=== PATIENT | male | born 1980 | race Caucasian/White ===

== ENCOUNTER 2016-08-08 19:27 | Inpatient (IN) ==
--- NOTE | 2016-08-08 19:33 | Emergency Department Note ---
Disposition Clinical Impression: Delirium tremens Disposition: Admitted As Inpatient Condition: Undetermined Time of Disposition: 21:10 Alcohol HPI - General Chief Complaint: ED Alcohol Abuse Stated Complaint: etoh withdrawal Time Seen by Provider: 08/08/16 19:28 Source: patient Mode of arrival: EMS Limitations: no limitations Nursing Notes Reviewed: Yes Vital Signs Reviewed: Yes - History of Present Illness HPI Narrative: 36-year-old male chronic alcohol abuser arrives to [facility] emergency department complaining concerned about alcohol withdrawal. The patient states that he typically drinks 2 L bottles of vodka per day. He states that he has only had 4 beers today. The patient is trembling in the room. Patient does admit to history of seizure. Pt Subjective Complaint: alcohol withdrawal, alcohol dependence Last Drink: hours (ago) (4) Alcohol Type: 2 - liters of vodka daily (today) Chronic Alcohol Use: Yes Previous Visits for Alcohol Intoxication?: No Recent Trauma: No Associated symptoms: Reports: nausea, vomiting, seizure Treatments prior to arrival: none - Related Data Home Medications Medication Instructions Recorded Confirmed No Known Home Drugs 08/08/16 08/08/16 Allergies Allergy/AdvReac Type Severity Reaction Status Date / Time haloperidol Allergy See Verified 03/14/15 11:38 Comments NSAIDS (Non-Steroidal Allergy Rash Verified 03/14/15 11:38 Anti-Inflamma Penicillins Allergy Rash Verified 03/14/15 11:38 quetiapine [From Seroquel] Allergy See Verified 03/14/15 11:38 Comments All systems ED: reviewed and negative except as stated. Constitutional: Denies: fever, chills, weakness, weight change Cardiovascular: Denies: chest pain, palpitations, dyspnea on exertion, edema, syncope Respiratory: Reports: wheezes. Denies: cough, dyspnea, hemoptysis, stridor Gastrointestinal: Reports: nausea, vomiting. Denies: abdominal pain, diarrhea, constipation, hematemesis, melena, hematochezia Genitourinary: Denies: urgency, dysuria, frequency, hematuria Musculoskeletal: Denies: back pain, neck pain, arthralgia, myalgia Integumentary: Denies: rash, abrasion, lesions Neurological: Denies: headache, weakness, numbness, paresthesias, confusion, abnormal gait, vertigo Psychiatric: Reports: depression. Denies: anxiety, suicidal thoughts, homicidal thoughts, auditory hallucinations, visual hallucinations Past Medical History - Past Medical History Attestation: Yes The following information was validated with the patient. Source: patient Medical history: Reports: no medical history Surgical history: Reports: no surgical history Psychiatric history: Reports: ADHD, bipolar - Social History Smoking Status: Never smoker Smokeless Tobacco Status: Yes Alcohol use: Reports: none Drug use: Reports: none Physical Exam - General Limitations: no limitations General appearance: alert, anxious - Head Head exam: atraumatic, normocephalic, normal inspection - Chest Chest inspection: Present: normal inspection, symmetric chest wall rise - Respiratory Respiratory exam: Present: wheezes (Mild wheezing bilateral upper lobes) - Cardiovascular Cardiovascular exam: Present: regular rate, normal rhythm, normal heart sounds - Abdominal Exam Abdominal exam: Present: soft, Non-Tender. Absent: tenderness, distention, guarding, rebound, rigidity - Extremities Exam Extremities exam: Present: normal inspection, full ROM, other (Numerous scars particularly in right upper extremity). Absent: tenderness, pedal edema - Back Exam Back exam: Present: normal inspection, full ROM. Absent: tenderness - Neurological Exam Neurological exam: Present: alert, oriented X3 - Expanded Neurological Exam Patient oriented to: Present: person, place, time Speech: Present: fluid speech Coma Scale Eye Opening: Spontaneous Coma Scale Motor Response: Obeys Commands Coma Scale Verbal Response: Oriented Coma Scale Total: 15 - Psychiatric Psychiatric exam: Present: anxious - Expanded Psychiatric Exam Expanded psych exam: Present: restlessness - Skin Skin exam: Present: warm, dry, intact, normal color Course - Reevaluation(s) Reevaluation #1: Alcohol level is less than 10. We will administer IV Ativan and admit the patient to the hospital for concern for DVT versus alcohol withdrawal. Patient agrees to plan. Time: 20:41 Vital Signs Temperature 98.1 F 08/08/16 19:29 Pulse Rate 62 08/08/16 19:29 Respiratory Rate 18 08/08/16 19:29 Blood Pressure 133/112 08/08/16 19:29 O2 Sat by Pulse Oximetry 98 08/08/16 19:29 Temperature 98.0 F 08/09/16 03:16 Pulse Rate 67 08/09/16 03:16 Respiratory Rate 14 08/09/16 03:16 Blood Pressure 150/94 08/09/16 03:16 O2 Sat by Pulse Oximetry 97 08/09/16 03:16 Oxygen Delivery Oxygen Delivery Room Air Alcohol - MDM Narrative Medical decision making narrative: Concerning for delirium tremens. Administered 1 mg Ativan. We will admit to the hospitalist concerning for delirium tremens. Accepted by Dr. Louise. - Lab Data Lab results reviewed: Yes I reviewed the patient's lab results. Result diagrams: 08/08/16 19:56 08/08/16 19:56 Lab Results 08/08/16 08/08/16 Range/Units 19:56 19:56 WBC 2.8 L (4.3-11.1) K/mcL RBC 5.09 (4.19-5.50) M/mcL Hgb 9.7 L (12.9-16.9) g/dL Hct 32.8 L (37.5-50.1) % MCV 64.4 L (83.0-100.0) fL MCH 19.1 L (28.0-33.3) pg MCHC 29.6 L (31.6-35.5) g/dL RDW 19.9 H (11.5-14.5) % Plt Count 153 (140-400) K/mcL MPV (9.4-12.4) fL Immature Gran % 0.7 (0-4) % Seg Neutrophils % 73.9 % Lymphocytes % 17.8 % Monocytes % 7.2 % Eosinophils % 0.4 % Basophils % 0.0 % Neutrophils # 2.1 (1.6-8.9) K/mcL Lymphocytes # 0.5 L (0.6-4.6) K/mcL Monocytes # 0.2 (0.0-1.3) K/mcL Eosinophils # 0.0 (0.0-0.6) K/mcL Basophils # 0.0 (0.0-0.2) K/mcL Immature Plt Fraction 6.1 (1.1-6.1) % Polychromasia 1+ A (Not Present) Microcytosis Present A (Not Present) Sodium 133 L (136-145) mEq/L Potassium 3.4 L (3.5-4.5) mEq/L Chloride 91 L (98-109) mEq/L Carbon Dioxide 24 (19-29) mEq/L BUN 16 (8-26) mg/dL Creatinine 0.69 L (0.72-1.25) mg/dL Est GFR ( Amer) > 60 (> 60) Est GFR (Non-Af Amer) > 60 (> 60) BUN/Creatinine Ratio 23 (6-26) Glucose 101 H (70-99) mg/dL Calculated Osmolality 277 L (280-300) Calcium 9.9 (8.6-10.8) mg/dL Ethyl Alcohol < 10 (0-10) mg/dL - Radiology Data Radiology results reviewed: Yes I reviewed the patient's radiology results. Attestation Statement - Attestation Attestation: I examined this patient and my medical decision-making was reviewed with the ENGINEERING PROFESSOR/PA/Advanced Practice Nurse/Resident Physician. I agree with the documented findings, disposition and treatment plan as described except to the extent set forth below. Patient emergency department complaining of alcohol withdrawal. Patient states he usually drinks two 1/5 of liquor daily. He has only had 4 beers today. He feels shaky any sinus seizure. History of the same. States he wants to stop drinking. Recently moved here from [place]. On examination he is awake and alert. Oriented. Shaky. Moving all extremities. Lungs with end expiratory wheezing. Abdomen soft. Plan. Ativan. Labs and alcohol. Plan admission for alcohol withdrawal sick concern for DTs. 30 minutes of critical care exclusive of separately billable procedures.
[2016-08-08] MEDS ORDERED: Thiamine (B-1) 100 MG, Folic Acid 1 MG, MVI, adult with vitamin K 10 ML in 0.9 % Sodi... IVPB ONE (19:45)
[2016-08-08] MEDS ORDERED: Ondansetron 4 MG/2 ML VIAL IVP ONE (20:14)
[2016-08-08] MEDS ORDERED: Ondansetron 4 MG/2 ML VIAL ONE (20:16)
[2016-08-08 20:22] LABS: Eosinophils % 0.4 %; Hematocrit 32.8 % (37.5-50.1); Hemoglobin 9.7 g/dL (12.9-16.9); Immature Granulocytes % 0.7 % (0-4); Immature Platelets 6.1 % (1.1-6.1); Lymphocytes # 0.5 K/mcL (0.6-4.6); Lymphocytes % 17.8 %; Mean Corpuscular HGB Conc 29.6 g/dL (31.6-35.5); Mean Corpuscular Hemoglobin 19.1 pg (28.0-33.3); Mean Corpuscular Volume 64.4 fL (83.0-100.0); Monocytes # 0.2 K/mcL (0.0-1.3); Monocytes % 7.2 %; Platelet Count 153 K/mcL (140-400); Red Blood Count 5.09 M/mcL (4.19-5.50); Red Cell Distribution Width 19.9 % (11.5-14.5); Segmented Neutrophils % 73.9 %
[2016-08-08 20:23] LABS: Neutrophils # 2.1 K/mcL (1.6-8.9)
[2016-08-08 20:31] LABS: BUN/Creatinine Ratio 23 (6-26); Blood Urea Nitrogen 16 mg/dL (8-26); Calcium 9.9 mg/dL (8.6-10.8); Carbon Dioxide 24 mEq/L (19-29); Chloride 91 mEq/L (98-109); Glucose 101 mg/dL (70-99); Osmolality,Calculated 277 (280-300); Potassium 3.4 mEq/L (3.5-4.5); Sodium 133 mEq/L (136-145); eGFR For African Americans > 60 (> 60); eGFR For Non-African Americans > 60 (> 60)
[2016-08-08 20:32] LABS: Ethanol < 10 mg/dL (0-10)
[2016-08-08] MEDS ORDERED: *HR* LORazepam 2 MG/ML VIAL IVP ONE (20:35)
[2016-08-08 20:40] LABS: Microcytosis Present (Not Present); Polychromasia 1+ (Not Present)
[2016-08-08] MEDS ORDERED: Naloxone 0.4 MG/ML INJ IVP PRN (22:32)
[2016-08-08] MEDS ORDERED: *HR* LORazepam 2 MG/ML VIAL ONE (22:38)
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
[2016-08-08] MEDS ORDERED: Potassium Chloride 20 MEQ, Lidocaine 1% 2 ML in D5% in Water 250 ML IVPB ONE (23:03)
--- NOTE | 2016-08-08 23:04 | Event Note ---
Date of Encounter: 08/08/16 Time of Encounter: 23:01 Patient seen and examined with nurse practitioner. Agree with assessment and plan. Patient is a heavy alcoholic drinks to [employer] every day starts withdrawing within 3 hours after last drink. He mentioned that he his last drink was in the morning about 9 AM. He is vomiting shaky, restless. He had a witnessed seizure. He had seizures before drinking alcohol withdrawal. Will start slow protocol. Head CT scan will be performed given recurrent falls. Patient is not suicidal.
[2016-08-08] MEDS ORDERED: D5% in 0.9% NACL 1,000 ML IVC SCH (23:15)
[2016-08-08] MEDS: Nicotine 21 MG PATCH.TD24 TD SCH (23:51)
[2016-08-09] MEDS: *HR* LORazepam 2 MG/ML VIAL IVP PRN ×8 (00:10→21:47)
[2016-08-09] MEDS ORDERED: Ondansetron 4 MG/2 ML VIAL ONE (01:08)
[2016-08-09] MEDS ORDERED: 0.9 % Sodium Chloride 1,000 ML IVC ONE (04:34)
[2016-08-09] MEDS ORDERED: *HR* Promethazine 25 MG/ML VIAL IVP ONE (04:35)
[2016-08-09 05:18] LABS: Amphetamine Screen,Urine Negative ng/mL (Cutoff=1000); Barbiturate Screen,Urine Negative ng/mL (Cutoff=200); Benzodiazepines Screen,Urine Negative ng/mL (Cutoff=200); Cannabinoid Screen,Urine Negative ng/mL (Cutoff = 50); Cocaine Screen,Urine Negative ng/mL (Cutoff= 300); Opiate Screen,Urine Negative ng/mL (Cutoff=300); Phencyclidine Screen,Urine Negative ng/mL (Cutoff=25)
[2016-08-09 05:36] LABS: Bilirubin,Urine Moderate (Negative); Blood,Urine Negative (Negative); Clarity,Urine Clear (Clear); Color,Urine Orange (Yellow); Glucose,Urine (UA) Normal (Normal); Ketones,Urine 40 mg/dL (Negative); Leukocyte Esterase,Urine Small (Negative); Nitrite,Urine Positive (Negative); PH,Urine 6.5 pH Units (5.0-8.0); Protein,Urine 30 mg/dL (Neg-Trace); Specific Gravity,Urine > 1.030 (1.010-1.025); Urobilinogen,Urine >=8.0 mg/dL (Normal)
[2016-08-09 05:38] LABS: Bacteria,Urine None Seen per hpf (None-Few); Hyaline Casts,Urine None Seen per lpf (None-Few); Squamous Epithelial Cell,Urine Moderate per lpf (None-Few); WBC,Urine 0-3 per hpf (0-3)
[2016-08-09 06:44] LABS: Immature Granulocytes % 0.3 % (0-4)
[2016-08-09 06:47] LABS: Eosinophils % 0.6 %; Hematocrit 31.1 % (37.5-50.1); Immature Platelets 8.7 % (1.1-6.1); Lymphocytes # 1.2 K/mcL (0.6-4.6); Lymphocytes % 36.5 %; Mean Corpuscular HGB Conc 28.9 g/dL (31.6-35.5); Mean Corpuscular Hemoglobin 19.5 pg (28.0-33.3); Mean Corpuscular Volume 67.3 fL (83.0-100.0); Monocytes # 0.2 K/mcL (0.0-1.3); Neutrophils # 1.8 K/mcL (1.6-8.9); Red Blood Count 4.62 M/mcL (4.19-5.50); Red Cell Distribution Width 20.3 % (11.5-14.5); Segmented Neutrophils % 57.6 %
[2016-08-09 07:03] LABS: BUN/Creatinine Ratio 23 (6-26); Blood Urea Nitrogen 16 mg/dL (8-26); Carbon Dioxide 27 mEq/L (19-29); Chloride 98 mEq/L (98-109); Glucose 90 mg/dL (70-99); Magnesium 1.9 mg/dL (1.6-2.6); Osmolality,Calculated 281 (280-300); Potassium 3.4 mEq/L (3.5-4.5); Sodium 135 mEq/L (136-145); eGFR For African Americans > 60 (> 60); eGFR For Non-African Americans > 60 (> 60)
[2016-08-09] MEDS: Nicotine 21 MG PATCH.TD24 TD SCH (07:53)
[2016-08-09 08:01] LABS: Platelet Count 97 K/mcL (140-400)
[2016-08-09 08:03] LABS: Platelet Estimate Decreased (Normal)
[2016-08-09 08:04] LABS: Hypochromasia Present (Not Present); Macrocytosis Present (Not Present); Microcytosis Present (Not Present); Polychromasia 1+ (Not Present)
[2016-08-09] MEDS ORDERED: D5% in 0.9% NACL 1,000 ML IVC SCH (11:21)
[2016-08-09] MEDS: Ondansetron 4 MG/2 ML VIAL IVP PRN ×2 (12:18→20:07)
--- NOTE | 2016-08-09 14:20 | Internal Med Progress Note ---
Date of Encounter: 08/09/16 Time of Encounter: 09:45 - Assessment and plan (1) Alcohol withdrawal Current Visit: Yes Status: Acute Assessment and plan: Patient normally drinks a fifth of vodka as well as several beers daily. the day of admission, he had his last drink approximately 9 AM and a few hours later he had a seizure. CT head was negative. Presently patient is tremulous. CIWA. Librium 3 times a day. fall/aspiration precautions Qualifiers: Complication of substance-induced condition: with unspecified complication Qualified Code(s): F10.239 - Alcohol dependence with withdrawal, unspecified (2) Tobacco abuse Current Visit: Yes Status: Chronic - Subjective Interval history: patient feels cold. no nausea. no vomiting. - Constitutional Vitals: Temp Pulse Resp BP Pulse Ox 98.3 F 88 16 135/78 91 08/09/16 11:31 08/09/16 11:31 08/09/16 11:31 08/09/16 11:31 08/09/16 11:31 General appearance: Present: cooperative, mild distress (tremors, restless), A& O X 3, pleasant, underweight, answers questions appropriately - Neck Neck exam general surgery: Present: supple, trachea midline. Absent: lymphadenopathy - Respiratory Respiratory exam: Present: CTAB - Cardiovascular Cardiovascular exam: Present: RRR - GI/Abdominal GI/Abdominal exam: Present: normal bowel sounds, soft. Absent: distended, tenderness - Extremities Exam Extremities exam: Absent: pedal edema - Back Exam Back exam: Absent: CVA tenderness (L), CVA tenderness (R) - Neurological Exam Neurological exam: Present: alert, oriented X3, no focal deficits, strengths equal and symetr throughout. Absent: facial droop, speech deficit Internal Medicine: Result - Labs CBC & Chem 7: 08/09/16 06:02 08/09/16 06:02 Labs: Short CBC 08/09/16 Range/Units 06:02 WBC 3.2 L (4.3-11.1) K/mcL Hgb 9.0 L (12.9-16.9) g/dL Hct 31.1 L (37.5-50.1) % Plt Count 97 L (140-400) K/mcL Neutrophils # 1.8 (1.6-8.9) K/mcL BMP 08/09/16 06:02 Sodium 135 L Potassium 3.4 L Chloride 98 Carbon Dioxide 27 BUN 16 Creatinine 0.71 L Glucose 90 Calcium 9.0 Urine 08/09/16 Range/Units 04:20 Urine Color [place] A (Yellow) Urine Clarity Clear (Clear) Urine pH 6.5 (5.0-8.0) pH Units Ur Specific [place] > 1.030 H (1.010-1.025) Urine Protein 30 H (Neg-Trace) mg/dL Urine Glucose (UA) Normal (Normal) mg/dL - Impressions Impressions Head CT 08/08/16 22:27 IMPRESSION: No acute intracranial abnormality. D/ / Wilmer Hernandez MD / Wilmer Hernandez MD Interpreting Provider: Wilmer Hernandez MD Consult Discharge Plan - Plan Referrals: NO,PCP [Primary Care Provider] -
[2016-08-09] MEDS: *HR* Heparin 5,000 UNIT/ML VIAL SQ SCH (17:24)
[2016-08-09] MEDS ORDERED: Thiamine (B-1) 100 MG, Folic Acid 1 MG, MVI, adult with vitamin K 10 ML in 0.9 % Sodi... IVPB SCH (18:00)
[2016-08-10] MEDS: *HR* LORazepam 2 MG/ML VIAL IVP PRN ×4 (00:38→11:12)
[2016-08-10 03:38] LABS: Hemoglobin 8.7 g/dL (12.9-16.9)
[2016-08-10 03:40] LABS: Basophils % 0.3 %; Eosinophils % 0.7 %; Hematocrit 30.7 % (37.5-50.1); Immature Granulocytes % 0.3 % (0-4); Lymphocytes % 49.7 %; Mean Corpuscular HGB Conc 28.3 g/dL (31.6-35.5); Mean Corpuscular Hemoglobin 19.6 pg (28.0-33.3); Monocytes # 0.2 K/mcL (0.0-1.3); Monocytes % 5.8 %; Neutrophils # 1.3 K/mcL (1.6-8.9); Platelet Count 102 K/mcL (140-400); Red Blood Count 4.45 M/mcL (4.19-5.50); Red Cell Distribution Width 20.3 % (11.5-14.5); Segmented Neutrophils % 43.2 %
[2016-08-10 03:55] LABS: BUN/Creatinine Ratio 21 (6-26); Blood Urea Nitrogen 15 mg/dL (8-26); Calcium 8.7 mg/dL (8.6-10.8); Carbon Dioxide 24 mEq/L (19-29); Chloride 105 mEq/L (98-109); Glucose 84 mg/dL (70-99); Magnesium 1.7 mg/dL (1.6-2.6); Osmolality,Calculated 286 (280-300); Potassium 3.4 mEq/L (3.5-4.5); Sodium 138 mEq/L (136-145); eGFR For African Americans > 60 (> 60); eGFR For Non-African Americans > 60 (> 60)
[2016-08-10 03:56] LABS: Lymphocytes # 1.4 K/mcL (0.6-4.6)
[2016-08-10 04:05] LABS: Platelet Estimate Decreased (Normal)
[2016-08-10 04:06] LABS: Anisocytosis 1+ (Not Present); Hypochromasia Present (Not Present); Microcytosis Present (Not Present)
[2016-08-10 04:07] LABS: Target Cells 1+ (Not Present)
[2016-08-10] MEDS: *HR* Heparin 5,000 UNIT/ML VIAL SQ SCH (06:26)
[2016-08-10] MEDS: Nicotine 21 MG PATCH.TD24 TD SCH (07:51)
[2016-08-10] MEDS ORDERED: Pantoprazole 40 MG VIAL IVP SCH (09:00)
[2016-08-10] MEDS: Ondansetron 4 MG/2 ML VIAL IVP PRN (11:11)
[2016-08-10 11:16] VITALS: BP 135/89
--- NOTE | 2016-08-10 11:19 | Internal Med Progress Note ---
Date of Encounter: 08/10/16 Time of Encounter: 09:00 - Assessment and plan (1) Alcohol withdrawal Current Visit: Yes Status: Acute Assessment and plan: Patient normally drinks a fifth of vodka as well as several beers daily. the day of admission, he had his last drink approximately 9 AM and a few hours later he had a seizure. CT head was negative. Presently patient is tremulous. requirinf IV lorazepam for withdrawal symptoms. continue Librium 3 times a day and CIWA. patient at high risk for seizure. fall/aspiration precautions Qualifiers: Complication of substance-induced condition: with unspecified complication Qualified Code(s): F10.239 - Alcohol dependence with withdrawal, unspecified (2) Tobacco abuse Current Visit: Yes Status: Chronic - Subjective Interval history: patient feels nauseous and has vomited yesterday. - Constitutional Vitals: Temp Pulse Resp BP Pulse Ox 98.7 F 83 16 135/89 100 08/10/16 11:16 08/10/16 11:16 08/10/16 11:16 08/10/16 11:16 08/10/16 11:16 General appearance: Present: cooperative, mild distress (tremors, restless), A& O X 3, pleasant, underweight, answers questions appropriately - Neck Neck exam general surgery: Present: supple, trachea midline. Absent: lymphadenopathy - Respiratory Respiratory exam: Present: CTAB - Cardiovascular Cardiovascular exam: Present: RRR - GI/Abdominal GI/Abdominal exam: Present: normal bowel sounds, soft. Absent: distended, tenderness - Extremities Exam Extremities exam: Absent: pedal edema - Back Exam Back exam: Absent: CVA tenderness (L), CVA tenderness (R) - Neurological Exam Neurological exam: Present: alert, no focal deficits, strengths equal and symetr throughout. Absent: pronater drift, facial droop, speech deficit Additional comments: bilateral hand tremors. - Skin Skin exam: Absent: rash Internal Medicine: Result - Labs CBC & Chem 7: 08/10/16 02:37 08/10/16 02:37 Labs: Short CBC 08/10/16 Range/Units 02:37 WBC 2.9 L (4.3-11.1) K/mcL Hgb 8.7 L (12.9-16.9) g/dL Hct 30.7 L (37.5-50.1) % Plt Count 102 L (140-400) K/mcL Neutrophils # 1.3 L (1.6-8.9) K/mcL BMP 08/10/16 02:37 Sodium 138 Potassium 3.4 L Chloride 105 Carbon Dioxide 24 BUN 15 Creatinine 0.73 Glucose 84 Calcium 8.7 Consult Discharge Plan - Plan Referrals: NO,PCP [Primary Care Provider] -
== END 2016-08-10 14:13 | disposition home or self-care (01) | DRG 775 ==
LOC: EMEROO 19:27 → 2ANU 19:27 → SUATTDRO 21:44 → 2ANU 21:50
PROVIDERS: ADMIT Hospitalist; ATTEND Internal Medicine

== ENCOUNTER 2016-08-10 16:10 | Inpatient (IN) ==
--- NOTE | 2016-08-10 16:31 | Emergency Department Note ---
Disposition Clinical Impression: Alcohol abuse Alcohol withdrawal Qualifiers: Complication of substance-induced condition: with unspecified complication Qualified Code(s): F10.239 - Alcohol dependence with withdrawal, unspecified Disposition: Admitted As Inpatient Condition: Fair Referrals: NO,PCP [Primary Care Provider] - Forms: ED Satisfaction Letter Time of Disposition: 19:03 Alcohol HPI - General Chief Complaint: ED Alcohol Abuse Stated Complaint: ETOH-incontinence Time Seen by Provider: 08/10/16 16:23 Source: patient, EMS Mode of arrival: EMS Limitations: no limitations Nursing Notes Reviewed: Yes Vital Signs Reviewed: Yes - History of Present Illness HPI Narrative: 36-year-old male with past medical history of schizoaffective disorder, substance abuse, depression, ADHD, alcoholism. Patient was admitted on 08/08/16 for alcohol withdrawal. The day of his admission, he did have an episode of seizure. CT of the head with negative at the time. Patient was being treated at the hospital and earlier today left against medical advice. Patient walked to [facility], so alcohol, had bowel incontinence, and was found passed out in the parking lot of [facility]. He was picked up by EMS air and plopped back to the emergency department. On the way to the emergency department, patient had another episode of bowel incontinence. She was alert and oriented x 1. He reports low back pain. He denies shortness of breath, but reports chest pain only with very deep inspiration. He denies nausea and vomiting. He does remember having one episode of diarrhea with incontinence upon arrival. He denies fever or chills. He denies any obvious source of bleeding. He would like to be readmitted and is interested in treatment for alcohol withdrawal. Pt Subjective Complaint: alcohol intoxication, desires rehab Last Drink: hours (ago) Alcohol Type: Beer Chronic Alcohol Use: Yes Previous Visits for Alcohol Intoxication?: Yes Recent Trauma: No - Related Data Home Medications Medication Instructions Recorded Confirmed No Known Home Drugs 08/08/16 08/08/16 Allergies Allergy/AdvReac Type Severity Reaction Status Date / Time haloperidol Allergy See Verified 03/14/15 11:38 Comments NSAIDS (Non-Steroidal Allergy Rash Verified 03/14/15 11:38 Anti-Inflamma Penicillins Allergy Rash Verified 03/14/15 11:38 quetiapine [From Seroquel] Allergy See Verified 03/14/15 11:38 Comments All systems ED: reviewed and negative except as stated. Past Medical History - Past Medical History Medical history: Reports: no medical history Surgical history: Reports: no surgical history Psychiatric history: Reports: ADHD, bipolar - Social History Smoking Status: Never smoker Smokeless Tobacco Status: Yes Alcohol use: Reports: none Drug use: Reports: none Physical Exam - General Limitations: no limitations General appearance: alert, in no apparent distress - Head Head exam: atraumatic, normocephalic, other (Patient has some scabs along his face.) - Eye Eye exam: Present: normal appearance - Neck Neck exam: Present: normal inspection, trachea midline - Chest Chest inspection: Present: normal inspection, symmetric chest wall rise - Respiratory Respiratory exam: Present: normal lung sounds bilaterally - Cardiovascular Cardiovascular exam: Present: regular rate, normal rhythm, +S1, +S2 - Abdominal Exam Abdominal exam: Present: soft, tenderness Abdominal tenderness: Present: diffuse - Extremities Exam Extremities exam: Present: normal inspection - Back Exam Back exam: Present: normal inspection - Neurological Exam Neurological exam: Present: alert, other (A&Ox2) - Psychiatric Psychiatric exam: Present: normal affect Course Vital Signs Temperature 97.9 F 08/10/16 16:18 Pulse Rate 113 08/10/16 16:18 Respiratory Rate 18 08/10/16 16:18 Blood Pressure 147/128 08/10/16 16:18 O2 Sat by Pulse Oximetry 97 08/10/16 16:18 Temperature 97.9 F 08/10/16 16:18 Pulse Rate 98 08/10/16 17:46 Respiratory Rate 20 08/10/16 17:46 Blood Pressure 103/64 08/10/16 17:46 O2 Sat by Pulse Oximetry 97 08/10/16 17:46 Oxygen Delivery Oxygen Delivery Room Air Alcohol - MDM Narrative Medical decision making narrative: ethyl alcohol level was 245. He did not have CBC and BMP drawn, because they were drawn this morning when he was inpatient. There was concern for PE with patient's pleuritic chest pain, but D-Dimer was negative. xray of lumbar spine shows no signs of fracture. Chest xray was unremarkable. Patient will be admitted for alcohol withdrawal to hospitalist. Spoke with nory villela, who has accepted the patient for admission. - Medical Records Medical records reviewed: Yes I reviewed the patient's medical records. - Lab Data Lab results reviewed: Yes I reviewed the patient's lab results. Lab Results 08/10/16 08/10/16 Range/Units 17:37 17:37 D-Dimer 338 (0-500) ng/mLFEU Ethyl Alcohol 245 H (0-10) mg/dL - Radiology Data Radiology results reviewed: Yes I reviewed the patient's radiology results. Attestation Statement - Attestation Attestation: I examined this patient and my medical decision-making was reviewed with the HOISTING MACHINE OPERATOR/PA/Advanced Practice Nurse/Resident Physician. I agree with the documented findings, disposition and treatment plan as described except to the extent set forth below. He 6-year-old who was admitted for alcohol withdrawal and signed out on the floor. He states he felt like he was in drawl so he went to a local store bought alcohol and drank it. He can stating that he wants to be admitted for detox. Psych he is in withdrawal and his score indicates that he is in withdrawal. Physical examination he has some mild tenderness of the lumbar spine. Obtain x-rays of lumbar spine alcohol level and admit.
[2016-08-10] MEDS ORDERED: *HR* LORazepam 2 MG/ML VIAL IVP ONE ×2 (17:36→20:45)
[2016-08-10] MEDS ORDERED: 0.9 % Sodium Chloride 1,000 ML IVC ONE (19:36)
[2016-08-10] MEDS ORDERED: Naloxone 0.4 MG/ML INJ IVP PRN (20:08)
[2016-08-10] MEDS ORDERED: Acetaminophen 325 MG TABLET PO PRN (20:08)
[2016-08-10] MEDS ORDERED: *HR* LORazepam 2 MG/ML VIAL IVP PRN (20:11)
[2016-08-10 20:26] LABS: Basophils % 0.3 %; Immature Granulocytes % 0.3 % (0-4)
[2016-08-10 20:29] LABS: Eosinophils % 0.9 %; Hematocrit 30.5 % (37.5-50.1); Hemoglobin 8.6 g/dL (12.9-16.9); Immature Platelets 6.4 % (1.1-6.1); Lymphocytes # 1.2 K/mcL (0.6-4.6); Lymphocytes % 36.9 %; Mean Corpuscular HGB Conc 28.2 g/dL (31.6-35.5); Mean Corpuscular Hemoglobin 19.7 pg (28.0-33.3); Mean Corpuscular Volume 69.8 fL (83.0-100.0); Monocytes # 0.3 K/mcL (0.0-1.3); Monocytes % 7.7 %; Neutrophils # 1.8 K/mcL (1.6-8.9); Red Blood Count 4.37 M/mcL (4.19-5.50); Red Cell Distribution Width 20.5 % (11.5-14.5); Segmented Neutrophils % 53.9 %
[2016-08-10 20:32] LABS: Prothrombin Time 11.2 Seconds (9.4-12.1)
[2016-08-10 20:34] LABS: Platelet Count 93 K/mcL (140-400)
[2016-08-10 20:41] LABS: Alanine Aminotransferase 111 Units/L (0-55); Albumin 3.4 g/dL (3.5-5.0); Alkaline Phosphatase 114 Units/L (38-126); Aspartate Amino Transferase 175 Units/L (5-34); BUN/Creatinine Ratio 12 (6-26); Bilirubin,Total 0.4 mg/dL (0.2-1.2); Blood Urea Nitrogen 9 mg/dL (8-26); Calcium 8.5 mg/dL (8.6-10.8); Carbon Dioxide 18 mEq/L (19-29); Chloride 108 mEq/L (98-109); Globulin 3.5 g/dL (2.4-3.5); Glucose 86 mg/dL (70-99); Magnesium 1.8 mg/dL (1.6-2.6); Osmolality,Calculated 288 (280-300); Sodium 140 mEq/L (136-145); Total Protein 6.9 g/dL (6.0-8.3); eGFR For African Americans > 60 (> 60); eGFR For Non-African Americans > 60 (> 60)
[2016-08-10 20:51] LABS: Anisocytosis 2+ (Not Present); Hypochromasia Present (Not Present); Large Platelets Present (Not Present)
[2016-08-10 20:52] LABS: Macrocytosis Present (Not Present); Microcytosis Present (Not Present); Platelet Estimate Decreased (Normal)
[2016-08-10] MEDS ORDERED: Potassium Chloride 40 MEQ, Lidocaine 1% 2 ML in D5% in Water 500 ML IVPB ONE (21:25)
[2016-08-10] MEDS ORDERED: D5% in 0.9% NACL 1,000 ML IVC SCH (21:30)
--- NOTE | 2016-08-10 21:52 | Internal Med History&Physical ---
Date of Encounter: 08/10/16 Time of Encounter: 21:00 Assessment and Plan (1) Alcohol abuse Current visit: Yes Status: Acute 1 patient has a history of alcohol abuse starting when he was 20 years old he is heavily been drinking for the past 6-7 months he is attempting to stop drinking. He was admitted to this facility on 08/08/16 left AMA due to withdrawal symptoms and drinks some beer he was found passed out in the parking lot incontinence of stool. He was brought back to this facility patient requesting readmission for withdrawal symptoms and would like alcohol rehabilitation. We will continue with CIWA protocol. 2 seizure precautions 3 Librium 10 twice a day 4. Banana bag daily 5 nothing by mouth for now 6 D5.9 saline 7 patient did have a fall we will obtain CT of head to rule out possible bleed (2) Tobacco abuse Current visit: No Status: Chronic Encouraged patient to stop smoking nicotine patch (3) DVT prophylaxis Current visit: No Status: Acute Heparin subcutaneous Internal Medicine - H&P: HPI Chief complaint: EtOH withdrawal Admitted From: Emergency Dept Plans for Post Hospital Care: Home History of present illness: Mr. Juan is a 36 year old male past medical history of alcohol abuse depression ADHD and bipolar disorder. Patient was admitted to this facility on 08/08/16 for alcohol withdrawal. Prior to that admission patient had a seizure after 4 hours of sustaining from alcohol use. At that time CT of his head was negative. He was being treated at this hospital for alcohol withdrawal and earlier today he left AGAINST MEDICAL ADVICE. He walks to [facility] in stole some beer. He was found passed out in the parking lot of [facility] incontinent of bowel. He was picked up by EMS and brought back to the ER. On his way to the emergency department he had another episode of bowel incontinence. Lab work was obtained patient's alcohol level was 245. Patient went to be readmitted and was interested in treatment for alcohol withdrawal. Presently patient is alert appropriate following commands. Slight hand tremor noted. Lung sounds are clear heart sounds S1 and S2 with no rubs clicks Murmurs Noted Abdomen Soft Nontender He Denies Any Chest Pain Shortness of Breath. According to the Patient He Left Because He [place] He Could Not Handle the Withdrawal Symptoms Anymore. He Complained of Hallucinations As Well As Nausea Vomiting and Abdominal Pain. I Reassured the Patient That He Will Be Adequately Medicated and Encourage Patient to Continue with His Goal of Going to Rehabilitation. Patient Agreed I Reviewed His Case with Dr. gordon Who Agrees with Plan Past Med Surg Social Fam HX - Past Medical History Medical history: no medical history Psychiatric history: ADHD, bipolar - Past Surgical History Surgical History: no surgical history - Social History Smoking Status: Current some day smoker Smokeless Tobacco Status: No Alcohol use: none, heavy, recent Drug use: none - Family History Father Living Status: Still Living Hx Family Cardiac Disorders: Yes (HTN) Internal Medicine - H&P: Meds No Known Home Drugs 08/08/16 [History] Allergies haloperidol Allergy (Verified 03/14/15 11:38) See Comments NSAIDS (Non-Steroidal Anti-Inflamma Allergy (Verified 03/14/15 11:38) Rash Penicillins Allergy (Verified 03/14/15 11:38) Rash quetiapine [From Seroquel] Allergy (Verified 03/14/15 11:38) See Comments All Systems PM: A 10-system review of systems was performed and is negative for pertinent findings except as documented above in the HPI. - Constitutional Constitutional: no chills, no fever(s), no night sweats - EENT Eyes: no change in vision, no discharge, no pain, no photophobia Ears: no ear discharge, no ear pain, no tinnitus Nose, mouth and throat: no dysphagia, no nasal discharge, no neck pain, no sore throat - Cardiovascular Cardiovascular ROS IM: no chest pain, no diaphoresis, no dyspnea, no lightheadedness, no palpitations, no syncope - Respiratory Respiratory: no cough, no dyspnea, no wheezing, no excessive phlegm production - Gastrointestinal Gastrointestinal: abdominal pain, nausea, vomiting - Musculoskeletal Musculoskeletal ROS IM: no numbness, no tingling - Neurological Neurological ROS: tremor(s), no confusion, no convulsions, no focal weakness, no numbness, no tingling - Psychiatric Psychiatric: anxiety, hallucinations - Hematologic/Lymphatic Hematologic/Lymphatic: no easy bruising - Constitutional Vitals: Temp Pulse Resp BP Pulse Ox 97.9 F 98 16 90/47 96 08/10/16 16:18 08/10/16 17:46 08/10/16 19:34 08/10/16 19:34 08/10/16 21:43 General appearance: Present: cachectic, A&O X 3, answers questions appropriately - Head Head exam: Present: atraumatic, normocephalic - Eye Eye exam: Present: PERRL, conjuntiva pink, sclera anicteric Pupils: Present: PERRL - Neck Neck exam general surgery: Present: supple, trachea midline. Absent: lymphadenopathy - Respiratory Respiratory exam: Present: CTAB. Absent: accessory muscle use, rales, rhonchi, wheezes - Cardiovascular Cardiovascular exam: Present: RRR, +S1, +S2. Absent: diastolic murmur, gallop, rubs, systolic murmur - GI/Abdominal GI/Abdominal exam: Present: normal bowel sounds, soft, no peritoneal signs. Absent: distended, tenderness - Extremities Exam Extremities exam: Present: warm, radial pulses palpable and symetrical. Absent : calf tenderness, cyanotic, pedal edema - Neurological Exam Neurological exam: Present: CN II-XII intact, oriented X3, no focal deficits. Absent: pronater drift, facial droop, speech deficit - Skin Skin exam: Present: dry, intact Internal Med - H&P Results - Labs CBC & Chem 7: 08/10/16 20:15 08/10/16 20:15 Labs: Short CBC 08/10/16 Range/Units 20:15 WBC 3.3 L (4.3-11.1) K/mcL Hgb 8.6 L (12.9-16.9) g/dL Hct 30.5 L (37.5-50.1) % Plt Count 93 L (140-400) K/mcL Neutrophils # 1.8 (1.6-8.9) K/mcL BMP 08/10/16 20:15 Sodium 140 Potassium 3.0 L Chloride 108 Carbon Dioxide 18 L BUN 9 Creatinine 0.76 Glucose 86 Calcium 8.5 L Liver Function 08/10/16 Range/Units 20:15 Total Bilirubin 0.4 (0.2-1.2) mg/dL AST 175 H (5-34) Units/L ALT 111 H (0-55) Units/L Alkaline Phosphatase 114 (38-126) Units/L Albumin 3.4 L (3.5-5.0) g/dL - Diagnostic Studies Other Images Additional comments: Chest X-Ray 08/10/16 17:10 IMPRESSION: No acute process. D/ / Ramsey Zhou MD / Ramsey Zhou MD Interpreting Provider: Ramsey Zhou MD Lumbar Spine X-Ray 08/10/16 17:13 IMPRESSION: No acute lumbar spine abnormality. D/ / Ramsey Zhou MD / Ramsey Zhou MD Interpreting Provider: Ramsey Zhou MD
[2016-08-10] MEDS ORDERED: *HR* Promethazine 25 MG/ML VIAL IVP PRN (21:58)
[2016-08-10] MEDS: 0.9 % Sodium Chloride 1,000 ML IVC SCH (22:00)
[2016-08-10 22:11] LABS: Amphetamine Screen,Urine Negative ng/mL (Cutoff=1000); Barbiturate Screen,Urine Negative ng/mL (Cutoff=200); Benzodiazepines Screen,Urine Positive ng/mL (Cutoff=200); Cannabinoid Screen,Urine Negative ng/mL (Cutoff = 50); Cocaine Screen,Urine Negative ng/mL (Cutoff= 300); Opiate Screen,Urine Negative ng/mL (Cutoff=300); Phencyclidine Screen,Urine Negative ng/mL (Cutoff=25)
[2016-08-10] MEDS: *HR* LORazepam 2 MG/ML VIAL IVP PRN (22:18)
[2016-08-10] MEDS: Nicotine 21 MG PATCH.TD24 TD SCH (22:19)
--- NOTE | 2016-08-10 23:47 | Event Note ---
Date of Encounter: 08/10/16 Time of Encounter: 23:45 Patient seen and examined with nurse practitioner. Patient had presented to the hospital 3 days ago for article withdrawal and left against medical advice this morning. Was found unresponsive outside [facility] where he went to drink alcohol. Was incontinent stool and he does not recall this event. Is unclear whether he had a seizure or not. Lactic acid on arrival was 5.6. 2 L of normal saline water was given. Continue hydration 150 mL an hour. We will check urinalysis and chest x-ray for any infectious etiology. Continue CIWA protocol with IV Ativan. Patient is high risk for the compensation. Seizure precautions. Telemetry.
[2016-08-11] MEDS: *HR* LORazepam 2 MG/ML VIAL IVP PRN ×5 (00:25→10:20)
[2016-08-11 00:42] LABS: Bilirubin,Urine Negative (Negative); Blood,Urine Negative (Negative); Clarity,Urine Cloudy (Clear); Color,Urine Yellow (Yellow); Glucose,Urine (UA) Normal (Normal); Ketones,Urine Negative (Negative); Leukocyte Esterase,Urine Negative (Negative); Nitrite,Urine Negative (Negative); Protein,Urine Negative (Neg-Trace); Specific Gravity,Urine 1.013 (1.010-1.025); Urobilinogen,Urine Normal (Normal)
[2016-08-11 00:45] LABS: Hyaline Casts,Urine None Seen per lpf (None-Few); RBC,Urine 0-3 per hpf (0-3); Squamous Epithelial Cell,Urine Few per lpf (None-Few); WBC,Urine 0-3 per hpf (0-3)
[2016-08-11 00:54] LABS: Bacteria,Urine Few per hpf (None-Few); Calcium Oxalate Crystals,Urine Present
[2016-08-11] MEDS: 0.9 % Sodium Chloride 1,000 ML IVC SCH (04:24)
[2016-08-11 05:59] LABS: Eosinophils # 0.1 K/mcL (0.0-0.6); Eosinophils % 4.1 %; Hematocrit 27.7 % (37.5-50.1); Hemoglobin 7.7 g/dL (12.9-16.9); Lymphocytes % 46.1 %; Mean Corpuscular HGB Conc 27.8 g/dL (31.6-35.5); Mean Corpuscular Hemoglobin 19.1 pg (28.0-33.3); Mean Corpuscular Volume 68.7 fL (83.0-100.0); Monocytes # 0.1 K/mcL (0.0-1.3); Monocytes % 5.7 %; Neutrophils # 1.1 K/mcL (1.6-8.9); Red Blood Count 4.03 M/mcL (4.19-5.50); Red Cell Distribution Width 20.3 % (11.5-14.5); Segmented Neutrophils % 44.1 %
[2016-08-11] MEDS ORDERED: Pantoprazole 40 MG VIAL IVP SCH (06:00)
[2016-08-11] MEDS ORDERED: *HR* Enoxaparin 40 MG/0.4 ML SYRINGE SQ SCH (06:00)
[2016-08-11] MEDS ORDERED: *HR* Heparin 5,000 UNIT/ML VIAL SQ SCH (06:00)
[2016-08-11 06:04] LABS: Lymphocytes # 1.2 K/mcL (0.6-4.6); Platelet Count 71 K/mcL (140-400)
[2016-08-11 06:13] LABS: BUN/Creatinine Ratio 8 (6-26); Calcium 8.2 mg/dL (8.6-10.8); Carbon Dioxide 21 mEq/L (19-29); Chloride 108 mEq/L (98-109); Glucose 84 mg/dL (70-99); Magnesium 1.5 mg/dL (1.6-2.6); Osmolality,Calculated 282 (280-300); Potassium 3.2 mEq/L (3.5-4.5); Sodium 138 mEq/L (136-145); eGFR For African Americans > 60 (> 60); eGFR For Non-African Americans > 60 (> 60)
[2016-08-11 06:14] LABS: Blood Urea Nitrogen 5 mg/dL (8-26)
[2016-08-11 06:29] LABS: Anisocytosis 3+ (Not Present); Hypochromasia Present (Not Present); Microcytosis Present (Not Present); Platelet Estimate Decreased (Normal)
[2016-08-11] MEDS ORDERED: Magnesium Sulfate 2 GM in D5% in Water 100 ML IVPB ONE (08:23)
[2016-08-11] MEDS: Nicotine 21 MG PATCH.TD24 TD SCH (08:28)
[2016-08-11 11:15] VITALS: BP 140/88
--- NOTE | 2016-08-11 11:25 | Internal Med Progress Note ---
Date of Encounter: 08/11/16 Time of Encounter: 11:00 - Assessment and plan (1) Alcohol withdrawal Current Visit: No Status: Acute Assessment and plan: Patient normally drinks a fifth of vodka as well as several beers daily. the day of admission, he had his last drink approximately 9 AM and a few hours later he had a seizure. CT head and CXR are negative. Presently, patient is tremulous but he is willing to quit alcohol. requiring IV lorazepam for withdrawal symptoms. continue Librium 2 times a day and CIWA. patient at high risk for seizure. fall/aspiration precautions Qualifiers: Complication of substance-induced condition: uncomplicated Qualified Code(s ): F10.230 - Alcohol dependence with withdrawal, uncomplicated (2) Tobacco abuse Current Visit: No Status: Chronic - Subjective Interval history: patient feels restless. no nausea. no vomiting. - Constitutional Vitals: Temp Pulse Resp BP Pulse Ox 98.2 F 80 20 140/88 98 08/11/16 11:11 08/11/16 11:11 08/11/16 11:11 08/11/16 11:11 08/11/16 11:11 General appearance: Present: cooperative, disheveled, A&O X 3, pleasant, answers questions appropriately Exam: bilateral hand tremors. - Neck Neck exam general surgery: Present: supple, trachea midline. Absent: lymphadenopathy - Respiratory Respiratory exam: Present: CTAB - Cardiovascular Cardiovascular exam: Present: RRR - GI/Abdominal GI/Abdominal exam: Present: normal bowel sounds, soft. Absent: distended, tenderness - Extremities Exam Extremities exam: Absent: pedal edema - Back Exam Back exam: Absent: CVA tenderness (L), CVA tenderness (R) - Neurological Exam Neurological exam: Present: alert, no focal deficits. Absent: facial droop, speech deficit Internal Medicine: Result - Labs CBC & Chem 7: 08/11/16 04:49 08/11/16 04:49 Labs: Short CBC 08/10/16 08/11/16 Range/Units 20:15 04:49 WBC 3.3 L 2.5 L (4.3-11.1) K/mcL Hgb 8.6 L 7.7 L (12.9-16.9) g/dL Hct 30.5 L 27.7 L (37.5-50.1) % Plt Count 93 L 71 L (140-400) K/mcL Neutrophils # 1.8 1.1 L (1.6-8.9) K/mcL BMP 08/10/16 08/11/16 20:15 04:49 Sodium 140 138 Potassium 3.0 L 3.2 L Chloride 108 108 Carbon Dioxide 18 L 21 BUN 9 5 L Creatinine 0.76 0.65 L Glucose 86 84 Calcium 8.5 L 8.2 L Liver Function 08/10/16 Range/Units 20:15 Total Bilirubin 0.4 (0.2-1.2) mg/dL AST 175 H (5-34) Units/L ALT 111 H (0-55) Units/L Alkaline Phosphatase 114 (38-126) Units/L Albumin 3.4 L (3.5-5.0) g/dL Urine 08/11/16 Range/Units 00:30 Urine Color Yellow (Yellow) Urine Clarity Cloudy A (Clear) Urine pH 7.0 (5.0-8.0) pH Units Ur Specific [place] 1.013 (1.010-1.025) Urine Protein Negative (Neg-Trace) mg/dL Urine Glucose (UA) Normal (Normal) mg/dL - ABG Interpretation ABG results: PT/INR, D-dimer PT 11.2 Seconds (9.4-12.1) 08/10/16 20:15 D-Dimer 338 ng/mLFEU (0-500) 08/10/16 17:37 - Impressions Impressions Head CT 08/10/16 21:26 IMPRESSION: No acute intracranial abnormality. D/ / Wilmer Hernandez MD / Wilmer Hernandez MD Interpreting Provider: Wilmer Hernandez MD Consult Discharge Plan - Plan Referrals: NO,PCP [Primary Care Provider] -
--- NOTE | 2016-08-11 16:18 | Discharge Summary ---
Date of Encounter: 08/11/16 Time of Encounter: 13:00 - Discharge Diagnosis (1) Alcohol withdrawal Priority: Primary Status: Acute Qualifiers: Complication of substance-induced condition: uncomplicated Qualified Code(s ): F10.230 - Alcohol dependence with withdrawal, uncomplicated (2) Alcohol intoxication Priority: Primary Status: Acute Qualifiers: Complication of substance-induced condition: uncomplicated Qualified Code(s ): F10.120 - Alcohol abuse with intoxication, uncomplicated (3) Tobacco abuse Priority: Secondary Status: Chronic - Discharge Medications Home Medications: Methylphenidate HCl [Ritalin] 10 mg PO BID 08/11/16 [History] Allergies/Adverse Reactions: Allergies haloperidol Allergy (Verified 03/14/15 11:38) See Comments NSAIDS (Non-Steroidal Anti-Inflamma Allergy (Verified 03/14/15 11:38) Rash Penicillins Allergy (Verified 03/14/15 11:38) Rash quetiapine [From Seroquel] Allergy (Verified 03/14/15 11:38) See Comments Procedures/tests Complete & Pending: Procedures Performed prior 72 hours Category Date Time Status CT head/brain wo con [CT] Routine Cat Scan 08/10/16 21:26 Completed Date of admission: 08/10/16 20:08 Primary care physician: PCP NO Consults: 08/10/16 20:12 Consult to Wafer Production Worker [CONS] Routine Reason for SW Consult: discharge planning - Patient Status Disposition: Left Against Medical Advice Condition: Fair Functional capacity at discharge: independent ambulation - Discharge Instructions Follow Up With: NO,PCP [Primary Care Provider] - Hospital course: Mr. Juan is a 36 year old male with past medical history of alcohol abuse, depression, ADHD and bipolar disorder. Patient was admitted to this facility on 08/08/16 for alcohol withdrawal and probable seizure at home. CT head and CXR were negative. He was being treated for alcohol withdrawal but left AGAINST MEDICAL ADVICE. He was found unresponsive in the parking lot of [facility] and was picked up by EMS and brought back to the ER. Patient's alcohol level was 245. Patient was readmitted for alcohol withdrawal. He states he wants to quit and wants to be treated at the hospital to prevent seizures. I saw the patient earlier this morning and he agreed on therapy. Nurse called me stating patient is leaving AMA. Patient left AMA. - Time Spent with Patient Total time spent providing and/or coordinating discharge services: - Constitutional Vitals: Temp Pulse Resp BP Pulse Ox 98.2 F 80 20 140/88 98 08/11/16 11:11 08/11/16 11:11 08/11/16 11:11 08/11/16 11:11 08/11/16 11:11 General appearance: Present: cooperative, disheveled, A&O X 3, pleasant, answers questions appropriately
[2016-08-11] MEDS ORDERED: Thiamine (B-1) 100 MG, Folic Acid 1 MG, MVI, adult with vitamin K 10 ML in 0.9 % Sodi... IVPB SCH (18:00)
[2016-08-12] MEDS ORDERED: Pantoprazole 40 MG VIAL IVP SCH (09:00)
== END 2016-08-11 11:42 | disposition left against medical advice (07) | DRG 770 ==
LOC: EMEROO 16:10 → 2ANU 16:10 → SUATTDRO 20:08
PROVIDERS: ADMIT Nurse Practitioner Family; ATTEND Internal Medicine